=== PATIENT | male | born 1995 | race Caucasian/White ===

== ENCOUNTER 2021-05-02 11:10 | Emergency (ER) | payer OTHER, SELFPAY ==
[2021-05-02 16:44] VITALS: BP 135/76; PULSE 72; TEMP 36.9; O2SAT 100; BMI 25.8
[2021-05-02 18:16] LABS: Appearance Urine CLEAR; Color Urine YELLOW; Glucose Urine UA NEG (NEG); Leukocyte Esterase Urine NEG (NEG); Nitrite Urine NEG (NEG); Urine Blood NEG (NEG); Urine Ketones NEG (NEG); Urine Protein NEG (NEG-TRACE)
--- NOTE | 2021-05-02 23:03 | ED_ITS ---
HPI - Abdominal Pain General Chief Complaint: Abdominal Pain Stated Complaint: Abd pain Time Seen by Provider: 05/02/21 22:47 Related Data Allergies Allergy/AdvReac Type Severity Reaction Status Date / Time Penicillins Allergy Hives Verified 05/02/21 16:49 Physical Exam Vital Signs: Vital Signs: Last Vital Signs Temp 98.5 F 05/02/21 16:44 Pulse 72 05/02/21 16:44 BP 135/76 05/02/21 16:44 Pulse Ox 100 05/02/21 16:44 BMI result Body Mass Index 25.8 MDM - Abdominal Pain Lab Data Labs: Lab Results 05/02/21 Range/Units 18:09 Urine Color YELLOW Urine Appearance CLEAR Urine pH 6.0 (5.0-8.0) Ur Specific [place] 1.010 (1.005-1.025) Urine Protein NEG (NEG-TRACE) MG/DL Urine Glucose (UA) NEG (NEG) MG/DL Urine Ketones NEG (NEG) MG/DL Urine Blood NEG (NEG) Urine Nitrite NEG (NEG) Ur Leukocyte Esterase NEG (NEG) [facility] Social History Social History Advance Directives: No
--- NOTE | 2021-05-02 23:23 | ED.ABDPAIN ---
HPI - Abdominal Pain General Chief Complaint: Abdominal Pain Stated Complaint: Abd pain Time Seen by Provider: 05/02/21 22:47 Source: patient Mode of arrival: ambulatory Limitations: no limitations History of Present Illness HPI narrative: 25-year-old male who presents emergency department for evaluation of dysuria and pelvic pain. Patient states that yesterday had multiple episodes painful urination. He states that today these episodes resolved but he developed pain in his pelvic area. Describes the pelvic pain is a constant, pressure-like sensation. He has not noticed any hematuria. He denies any penile discharge. the patient states that he is sexually active with 1 female sexual partner. States he last had sex 2 days prior. He states that the symptoms are new and he has never had them in the past. Patient also states that he has been having hives. He states he has been having these for 1-2 weeks without any clear cause. He states that he does not have any hives at this time. Related Data Previous Rx's Medication Instructions Recorded doxycycline hyclate 100 mg tablet 100 mg PO Q12H 10 Days #20 tab 05/02/21 Allergies Allergy/AdvReac Type Severity Reaction Status Date / Time Penicillins Allergy Hives Verified 05/02/21 16:49 Review of Systems Review of Systems Yes all other systems are reviewed and are negative Physical Exam Vital Signs: Vital Signs: Last Vital Signs Temp 98.5 F 05/02/21 16:44 Pulse 72 05/02/21 16:44 BP 135/76 05/02/21 16:44 Pulse Ox 100 05/02/21 16:44 BMI result Body Mass Index 25.8 Const: General: cooperative and no acute distress Orientation/consciousness: oriented to person and oriented to place Limitations: no limitations HENMT: Head: Yes normal to inspection, Yes normocephalic and Yes atraumatic Ears: external ears normal General nose exam: Normal external nose present Face and sinus: Yes normal facial exam Mouth: Normal oral and palatal mucosa present Throat: Yes posterior oropharynx normal Eyes: General: appearance normal, both eyes and all related structures Pupils: Equal, round and reactive pupils present Neck: Neck: Yes normal visual inspection, Yes no lymphadenopathy, Yes trachea midline and Yes supple Chest: Chest palpation & inspection: normal inspection of the chest and normal palpation of entire chest wall Resp: Effort & Inspection: normal respiratory effort and able to speak in complete sentences Auscultation: clear to auscultation bilaterally Cardio: Rate: regular rate Rhythm: regular rhythm Heart sounds: S1 normal heart sound present, S2 normal heart sound present and no murmurs GI: Inspection: Yes normal to inspection Palpation (GI): Soft to palpation, nontender and no guarding Auscultation: normal bowel sounds : General: Yes no CVA tenderness Male General Exam: Yes normal external exam Penis: normal penis and circumcised Meatus: meatus normal and no meatla discharge Scrotum: scrotum normal and testes descended bilaterally Testes: Testes normal and no epidiymal tenderness Back/Spine/Pelvis: Back: no CVA tenderness Skin: General skin exam: no rashes or lesions noted Neuro: General: oriented to person and oriented to place Cranial nerves: Yes CN's II-XII intact bilaterally and Yes Equal, round and reactive pupils present Cognition (Neuro): normal cognition Extrem: General: Yes normal to inspection Psych: Appearance: grossly normal Speech and movement: Normal speech and movement present Affect: normal affect Attitude: cooperative Thought process: Normal thought process present Course Course Course Narrative: 25-year-old male who presents emergency department for evaluation of dysuria yesterday which resolved and pelvic pain which started today. The patient is sexually active and has 1 female sexual partner that he had sex with 2 days prior. Vital signs were normal. Physical examination was unremarkable. Urinalysis was negative. The patient's presentation is consistent with acute prostatitis. I did discuss the possibility of STI with the patient. A non clean catch urine was sent for GC and chlamydia PCR testing. Patient also had a COVID test as well. The patient will be treated with ceftriaxone 500 mg with lidocaine IM and doxycycline 100 mg twice a day for 10 days. The patient will be referred to our on-call urologist. He was also given the pamphlet for the patient portal. I told her that it is important that he check the gonorrhea and chlamydia results and if these results were positive then his sexual partner needs to be treated. He was advised to not have sex until he has completed his course of antibiotics and has followed up with his provider or the urologist. He is advised to take ibuprofen and Tylenol for pain as well. MDM - Abdominal Pain Lab Data Labs: Lab Results 05/02/21 Range/Units 18:09 Urine Color YELLOW Urine Appearance CLEAR Urine pH 6.0 (5.0-8.0) Ur Specific [place] 1.010 (1.005-1.025) Urine Protein NEG (NEG-TRACE) MG/DL Urine Glucose (UA) NEG (NEG) MG/DL Urine Ketones NEG (NEG) MG/DL Urine Blood NEG (NEG) Urine Nitrite NEG (NEG) Ur Leukocyte Esterase NEG (NEG) Discharge Plan Discharge Clinical Impression: Acute prostatitis Patient Disposition: Home, Self-Care Instructions: Prostatitis (ED) Additional Instructions: Your urinalysis was normal. Your exam was unremarkable. Your symptoms are consistent with an infection of your prostate (prostatitis) Your were tested for gonorrhea and chlamydia. These results will not come back today and it is important that you know whether these tests are positive her negative. If these tests are positive then your sexual partner will need to be treated. Do not have sex until you have completed your antibiotics and of followed up with your doctor or our urologist. You received ceftriaxone mixed with lidocaine 500 mg intramuscularly. I am giving you a prescription for an antibiotic called doxycycline 100 mg, take 1 pill every 12 hours for 10 days. Finish this entire prescription. Take ibuprofen 200 mg pills, 3 pills every 6 hours as needed for pain. Take Tylenol (acetaminophen) 500 mg pills, 2 pills every 4 to 6 hours as needed for pain. Follow-up with your doctor in for our on-call urologist in 7-10 days. Please return to the emergency department if your symptoms get worse or if you develop any symptoms that are concerning to you. Prescriptions: New doxycycline hyclate 100 mg tablet 100 mg PO Q12H 10 Days Qty: 20 RF: 0 Referrals: Ramon Randolph III, MD [Physician] - 10 days [facility] Past Medical History [facility] Narrative: Past medical history: Exercise-induced asthma. Past surgical history: None. Social history: He denies tobacco use. He states that he drinks 2-3 beers 4 times a week. He denies drug use. Social History Social History Advance Directives: No
[2021-05-02 23:30] LABS: COVID-19 Test Negative (Negative)
[2021-05-03] MEDS: cefTRIAXone sodium 500 MG, Lidocaine HCl 1 % MPF 1 ML IM (00:51)
[2021-05-03 02:34] LABS: CT PCR NOT DETECTED (Not Detect.); NG PCR NOT DETECTED (Not Detect.)
== END 2021-05-03 01:00 | disposition home or self-care (01) ==
PROVIDERS: Emergency Provider Emergency Medicine Emergency Medical Services
DX: N41.0 Acute prostatitis (principal); R30.0 Dysuria; L50.9 Urticaria, unspecified; Z20.822 Contact with and (suspected) exposure to COVID-19
CPT/HCPCS: 36415; 81003; 87491; 87591; 87635; 96372; 99283; 99284; J0696

== ENCOUNTER 2022-04-30 12:42 | Emergency (ER) | payer OTHER, SELFPAY ==
--- NOTE | 2022-04-30 12:43 | ECG_ITS ---
Test Reason : CHEST PAIN Blood Pressure : / mmHG Vent. Rate : 069 BPM Atrial Rate : 069 BPM P-R Int : 160 ms QRS Dur : 088 ms QT Int : 374 ms P-R-T Axes : 033 065 031 degrees QTc Int : 400 ms Normal sinus rhythm with sinus arrhythmia Normal ECG No previous ECGs available Referred By: Generic ED Physician Electronically Signed By:Quinton Elizabeth
[2022-04-30 12:44] VITALS: BP 144/90; PULSE 77; RESP 18; TEMP 36.6; O2SAT 97; BMI 25.9
[2022-04-30 13:02] LABS: MANUAL DIFF FLAG NO
[2022-04-30 13:10] LABS: Eosinophils Percent Auto 1.7 % (0-4); Hematocrit 43.5 % (42.0-52.0); Hemoglobin 15.1 g/dl (14.0-18.0); Imm Gran Pct Auto 0.2 % (0.0-0.4); Lymphocytes Percent Auto 22.1 % (20-40); Mean Corpuscular HGB Conc 34.7 g/dl (31.0-36.0); Mean Corpuscular Hemoglobin 30.4 pg (27.0-33.0); Mean Corpuscular Volume 87.7 fL (80.0-98.0); Mean Platelet Volume 10.3 fL (9.4-12.4); Monocytes Percent Auto 7.9 % (2-11); Neutrophils Percent Auto 67.6 % (45-73); Platelet Count 190 X10*3/uL (160-400); Red Blood Count 4.96 X10*6/uL (4.60-5.80); Red Cell Distribution Width 11.4 % (11.0-16.0); White Blood Count 6.4 X10*3/uL (4.8-10.8)
[2022-04-30 13:14] LABS: Basophils Percent Auto 0.5 % (0-2); Eosinophils Absolute Auto 0.1 X10*3/uL (0.0-0.4); Imm Gran Abs Auto 0.01 X10*3/uL (0.00-0.03); Lymphocytes Absolute Auto 1.4 X10*3/uL (1.2-4.9); Monocytes Absolute Auto 0.5 X10*3/uL (0.1-1.2); Neutrophils Absolute Auto 4.4 x10*3/uL (2.0-8.3)
[2022-04-30 13:21] LABS: Alanine Aminotransferase 23 U/L (0-40); Albumin Level 4.8 g/dL (3.5-5.0); Alkaline Phosphatase 64 U/L (39-117); Anion Gap 10 (12-20); Aspartate Amino Transferase 19 U/L (5-37); Bilirubin Direct 0.2 mg/dL (0.0-0.5); Bilirubin Total 0.5 mg/dL (0.0-1.0); Blood Urea Nitrogen 9 mg/dL (9-16); Calcium 9.4 mg/dL (8.4-10.2); Carbon Dioxide 31 mmol/L (22-29); Chloride 105 mmol/L (96-108); Creatinine Clr Calc Pharmacy 117.4; Estimated Glomerular Filt Rate > 60; Glucose Random 93 mg/dL (60-115); Potassium 4.2 mmol/L (3.3-5.1); Sodium 142 mmol/L (135-145); Total Protein 7.6 g/dL (6.5-8.0)
--- NOTE | 2022-04-30 13:35 | ED.CHESTPAIN ---
HPI - Chest Pain General Chief Complaint: Chest Pain Stated Complaint: palpations Time Seen by Provider: 04/30/22 13:09 Source: patient Mode of arrival: ambulatory History of Present Illness HPI narrative: 26-year-old male with presentation for heart palpitations that started today and last approximately 20 minutes and patient states at the time had been associated with dizziness, diaphoresis, shortness of breath. Patient states that they occurred with exertion as well as at rest. And of note he was COVID positive 1 week ago. Related Data Previous Rx's Medication Instructions Recorded doxycycline hyclate 100 mg tablet 100 mg PO Q12H 10 days #20 tabs 05/02/21 levofloxacin 500 mg tablet 500 mg PO DAILY prostatitis 14 05/18/21 days #14 tabs meloxicam 15 mg tablet (Mobic) 15 mg PO DAILY prostatitis 30 days 05/18/21 #30 tabs prednisone 20 mg tablet 20 mg PO DAILY 5 days #5 tabs 05/18/21 Allergies Allergy/AdvReac Type Severity Reaction Status Date / Time Penicillins Allergy Hives Verified 05/02/21 16:49 Review of Systems Review of Systems: Pertinent positives and negatives as stated in HPI 10 point review of systems is otherwise negative. PMFSH Past Medical History Source: nursing notes reviewed Social History Social History Advance Directives: No Advance Directives Information Provided: Yes Physical Exam Vital Signs: Vital Signs: Last Vital Signs Temp 97.8 F 04/30/22 12:44 Pulse 77 04/30/22 12:44 Resp 18 04/30/22 12:44 BP 144/90 H 04/30/22 12:44 Pulse Ox 97 04/30/22 12:44 O2 Del Method 04/30/22 12:44 BMI result Body Mass Index 25.9 VITAL SIGNS: Reviewed. GENERAL: Well developed, well nourished, in no acute distress, patient appears well. HEAD: Normocephalic/atraumatic EYES: PERRLA, EOMI EARS: Ext canals without abnormality, TMs non-bulging and non-erythematous NOSE: Nares patent bilateral OROPHARYNX: no oral lesions noted, posterior pharynx clear and non-erythematous without noted tonsillar enlargement/erythema/exudates NECK: Supple, no adenopathy LUNGS: Normal breath sounds, no tachypnea/wheeze/rhonchi/rales. SpO2<97> CARDIOVASCULAR: Regular rate and rhythm without noted murmurs ABDOMEN: Soft, non-tender, non-distended with bowel sounds. MUSCULOSKELETAL: No tenderness, deformities, or effusions noted on gross inspection. EXTREMITIES: No cyanosis, clubbing or edema. SKIN: Inspection of the skin reveals no rashes, no diaphoresis NEUROLOGIC: Alert and oriented x 4. Strength and sensation to light touch were grossly intact x 4. Course Course Course Narrative: I have reviewed all investigations for this patient, there is no evidence of infection/anemia/electrolyte imbalance to further explain patient's palpitations. I have reviewed the EKG which is negative for acute findings to better explain the palpitations. Viral testing is negative other than COVID-19 which in some cases can remain positive in patient's. He is otherwise not tachypneic, not tachycardic, and he is oxygenating well on room air. Medical Decision Making Medical Decision Making MDM Narrative: 26-year-old male who has recently had COVID and does not present with pericarditis type symptoms but states he has had some palpitations without fever or chills. Patient otherwise appears well and is hemodynamically stable, afebrile and oxygenating well on room air. Differential Diagnosis Differential Diagnoses: The differential diagnosis associated with the presentation includes Infection, anemia, electrolyte imbalance, viral Lab Data [facility] Lab Attestation statement: I reviewed the patient's lab results. Please see the course Section for discussion regarding lab results. Result Diagrams: 04/30/22 12:57 04/30/22 12:57 Labs: Lab Results 04/30/22 04/30/22 04/30/22 Range/Units 12:57 12:57 12:57 WBC 6.4 (4.8-10.8) X10*3/uL RBC 4.96 (4.60-5.80) X10*6/uL Hgb 15.1 (14.0-18.0) g/dl Hct 43.5 (42.0-52.0) % MCV 87.7 (80.0-98.0) fL MCH 30.4 (27.0-33.0) pg MCHC 34.7 (31.0-36.0) g/dl RDW 11.4 (11.0-16.0) % Plt Count 190 (160-400) X10*3/uL MPV 10.3 (9.4-12.4) fL Immature Gran % (Auto) 0.2 (0.0-0.4) % Neut % (Auto) 67.6 (45-73) % Lymph % (Auto) 22.1 (20-40) % [place] % (Auto) 7.9 (2-11) % Eos % (Auto) 1.7 (0-4) % Baso % (Auto) 0.5 (0-2) % Lymph # (Auto) 1.4 (1.2-4.9) X10*3/uL [place] # (Auto) 0.5 (0.1-1.2) X10*3/uL Eos # (Auto) 0.1 (0.0-0.4) X10*3/uL Baso # (Auto) 0.0 (0.0-0.2) X10*3/uL Abs Immat Gran (auto) 0.01 (0.00-0.03) X10*3/uL Absolute Neuts (auto) 4.4 (2.0-8.3) x10*3/uL Absolute Nucleated RBC 0.000 (0.0-0.012) X10*3/uL Nucleated RBC % (auto) 0.0 (0.0-0.2) /100WBC Sodium 142 (135-145) mmol/L Potassium 4.2 (3.3-5.1) mmol/L Chloride 105 (96-108) mmol/L Carbon Dioxide 31 H (22-29) mmol/L Anion Gap 10 L (12-20) BUN 9 (9-16) mg/dL Creatinine 0.86 (0.5-1.4) mg/dL Estim Creat Clear Calc 117.4 Estimated GFR > 60 Random Glucose 93 (60-115) mg/dL Calcium 9.4 (8.4-10.2) mg/dL Total Bilirubin 0.5 (0.0-1.0) mg/dL Direct Bilirubin 0.2 (0.0-0.5) mg/dL AST 19 (5-37) U/L ALT 23 (0-40) U/L Alkaline Phosphatase 64 (39-117) U/L Troponin I High Sens < 3.5 (<3.5-35.0) ng/L Total Protein 7.6 (6.5-8.0) g/dL Albumin 4.8 (3.5-5.0) g/dL Lipase 61 (8-78) U/L COVID-19 (MICHELINE) (Negative) COVID-19 Clin Com Influenza Type A (LEONILA) (Negative) Influenza Type B (LEONILA) (Negative) Influenza A & B Note 04/30/22 04/30/22 Range/Units 13:27 13:27 WBC (4.8-10.8) X10*3/uL RBC (4.60-5.80) X10*6/uL Hgb (14.0-18.0) g/dl Hct (42.0-52.0) % MCV (80.0-98.0) fL MCH (27.0-33.0) pg MCHC (31.0-36.0) g/dl RDW (11.0-16.0) % Plt Count (160-400) X10*3/uL MPV (9.4-12.4) fL Immature Gran % (Auto) (0.0-0.4) % Neut % (Auto) (45-73) % Lymph % (Auto) (20-40) % [place] % (Auto) (2-11) % Eos % (Auto) (0-4) % Baso % (Auto) (0-2) % Lymph # (Auto) (1.2-4.9) X10*3/uL [place] # (Auto) (0.1-1.2) X10*3/uL Eos # (Auto) (0.0-0.4) X10*3/uL Baso # (Auto) (0.0-0.2) X10*3/uL Abs Immat Gran (auto) (0.00-0.03) X10*3/uL Absolute Neuts (auto) (2.0-8.3) x10*3/uL Absolute Nucleated RBC (0.0-0.012) X10*3/uL Nucleated RBC % (auto) (0.0-0.2) /100WBC Sodium (135-145) mmol/L Potassium (3.3-5.1) mmol/L Chloride (96-108) mmol/L Carbon Dioxide (22-29) mmol/L Anion Gap (12-20) BUN (9-16) mg/dL Creatinine (0.5-1.4) mg/dL Estim Creat Clear Calc Estimated GFR Random Glucose (60-115) mg/dL Calcium (8.4-10.2) mg/dL Total Bilirubin (0.0-1.0) mg/dL Direct Bilirubin (0.0-0.5) mg/dL AST (5-37) U/L ALT (0-40) U/L Alkaline Phosphatase (39-117) U/L Troponin I High Sens (<3.5-35.0) ng/L Total Protein (6.5-8.0) g/dL Albumin (3.5-5.0) g/dL Lipase (8-78) U/L COVID-19 (MICHELINE) Positive A (Negative) COVID-19 Clin Com See Note Influenza Type A (LEONILA) Negative (Negative) Influenza Type B (LEONILA) Negative (Negative) Influenza A & B Note See Note Independent Interpretation I performed an independent interpretation of an: EKG Interpretation: Normal sinus rhythm, HR-69, no STEMI, FL/QRS/QTC are within normal limits Radiology Impression Radiologist Impression: My interpretation is in agreement with the radiologist impression of the chest x-ray. External Record Review External record reviewed: Outpatient record and Prior outpatient labs Discharge Plan Discharge Clinical Impression: Heart palpitations Patient Disposition: Home, Self-Care Instructions: Heart Palpitations (ED) Additional Instructions: 1. Avoid all caffeinated products such as tea, soda, some types of water, coffee, chocolate. 2. Follow-up with your primary care provider Monday morning to get further evaluated. Return to the ER for any worsening symptoms. Prescriptions: No Action levofloxacin 500 mg tablet 500 mg PO DAILY 14 Days Qty: 14 0RF prednisone 20 mg tablet 20 mg PO DAILY 5 Days Qty: 5 0RF meloxicam [Mobic] 15 mg tablet 15 mg PO DAILY 30 Days Qty: 30 0RF doxycycline hyclate 100 mg tablet 100 mg PO Q12H 10 Days Qty: 20 0RF
[2022-04-30 13:44] LABS: COVID-19 Test Positive (Negative)
[2022-04-30 13:47] LABS: IDNOW Serial# 16C4AD1C; Influenza A Negative (Negative); Influenza B2 Negative (Negative)
[2022-04-30 14:19] LABS: Troponin-I High Sensitivity < 3.5 ng/L (<3.5-35.0)
[2022-04-30 14:20] LABS: Lipase 61 U/L (8-78)
[2022-04-30 14:48] VITALS: BP 142/88; PULSE 78; RESP 18; TEMP 36.6; O2SAT 97
--- NOTE | 2022-04-30 14:49 | PC.NURSE ---
patient a/ox4 . VSS . went over discharge instructions as ordered by provider . patient to follow up with primary care . patient to return to Ed if symptoms worsen . no questions at this time .
== END 2022-04-30 14:51 | disposition home or self-care (01) ==
PROVIDERS: Emergency Provider Student in an Organized Health Care Education/Training Program
DX: U07.1 COVID-19 (principal); R00.2 Palpitations
CPT/HCPCS: 36415; 71045; 80053; 82248; 83690; 84484; 85025; 87502; 87635; 93005; 99283; 99284

== ENCOUNTER 2022-10-01 19:06 | Emergency (ER) | payer OTHER, SELFPAY ==
[2022-10-01 19:08] VITALS: BP 128/72; PULSE 74; RESP 16; TEMP 36.4; O2SAT 99; BMI 25.8
--- NOTE | 2022-10-01 19:09 | ED.GENADULT ---
HPI - General Adult General Chief complaint: General Medical Stated complaint: dizziness,bloody stools Time Seen by Provider: 10/01/22 19:45 Source: patient, RN notes reviewed and old records reviewed Mode of arrival: ambulatory Limitations: no limitations History of Present Illness HPI narrative: 27-year-old male presents for evaluation of 2 separate complaints. He reports occasional dizzy spells for the last 2 weeks. They occur almost daily He denies any headaches, head or neck trauma He states that this has not happened in the past He is not sure if his symptoms worsen with movement or are random He also endorses bright red blood with bowel movements for the last 3 days He denies any abdominal pain or rectal pain or diarrhea He is not on any blood thinners No other complaints or concerns at time Related Data Previous Rx's Medication Instructions Recorded doxycycline hyclate 100 mg tablet 100 mg PO Q12H 10 days #20 tabs 05/02/21 levofloxacin 500 mg tablet 500 mg PO DAILY prostatitis 14 05/18/21 days #14 tabs meloxicam 15 mg tablet (Mobic) 15 mg PO DAILY prostatitis 30 days 05/18/21 #30 tabs prednisone 20 mg tablet 20 mg PO DAILY 5 days #5 tabs 05/18/21 hydrocortisone acetate 25 mg 25 mg MD BID 5 days #12 ea 10/01/22 rectal suppository (Anusol-HC) meclizine 25 mg tablet 25 mg PO TID PRN dizziness #20 tabs 10/01/22 Allergies Allergy/AdvReac Type Severity Reaction Status Date / Time Penicillins Allergy Hives Verified 05/02/21 16:49 Review of Systems Constitutional: Constitutional: Reports as per HPI, Denies chills, Denies fatigue, Denies fever(s) and Denies headache(s) ENT: Reports dizziness and Denies headache(s) Cardiovascular: Cardiovascular: Denies chest pain and Denies dyspnea Respiratory: Respiratory: Denies cough and Denies dyspnea Gastrointestinal: Gastrointestinal: Denies abdominal pain, Reports hematochezia, Denies constipation and Denies vomiting Genitourinary: Genitourinary: Denies difficulty urinating and Denies dysuria Neurologic: Reports dizziness, Denies headache(s) and Denies focal weakness Comments: Reports dizzy spells Endocrine: Endocrine: Denies fatigue [facility] Social History Social History Advance Directives: No Advance Directives Information Provided: No Physical Exam ED Vital Signs: Vital Signs - 24 hr 10/01/22 19:08 Temperature 97.6 F Pulse Rate 74 Respiratory Rate 16 Blood Pressure 128/72 Pulse Oximetry 99 Oxygen Delivery Method Room Air BMI result Body Mass Index 25.8 Const General: healthy appearing, comfortable, no acute distress, alert and awake Nutritional Appearance: well nourished Orientation/consciousness: patient oriented x3 HENMT Head: Yes normocephalic and Yes atraumatic Ears: Abnormal EAC present excessive cerumen bilateral Throat: Yes posterior oropharynx normal Eyes Eyelids: Yes eyelids normal Conjunctivae: conjunctivae normal Sclerae: sclerae normal Corneas: corneas normal Pupils: Equal, round and reactive pupils present EOM: EOMs intact bilaterally Neck Neck: Yes full ROM Resp Effort & Inspection: normal respiratory effort, able to speak in complete sentences, no audible wheezes and not labored Cardio Rate: regular rate Rhythm: regular rhythm GI Inspection: No distended Palpation (GI): Soft to palpation, not firm, nontender, no guarding and not rigid Auscultation: normoactive bowel sounds Rectal Exam - Male: Yes visual inspection normal, Yes normal sphincter tone, Yes heme negative stool and No External hemorrhoid(s) present Skin General skin exam: no rashes or lesions noted and elasticity normal Neuro General: patient oriented x3 and Pratts Hallpike (Positive test) Cranial nerves: Yes CN's II-XII intact bilaterally, Yes Equal, round and reactive pupils present and Yes Bilaterally intact EOM present Cognition (Neuro): normal cognition Extrem Other: Moving all extremities well without any obvious deformities Course Course Course Narrative: RME performed by Alvina Morton PA-C. Patient is a 27 year old assigned male at presenting to the emergency department with intermittent dizziness and bloody stools. Labs ordered. Patient placed back in the waiting room pending room availability and results. Medications Administered Discontinued Medications Generic Name Dose Route Start Last Admin Trade Name Freq PRN Reason Stop Dose Admin Meclizine HCl 25 mg 10/01/22 20:11 10/01/22 20:23 Meclizine Hcl 25 Mg Tablet PO 10/01/22 20:12 25 mg ONCE ONE Administration Medical Decision Making Medical Decision Making MDM Narrative: Patient presents for bright red blood per rectum but denies any rectal abdominal pain. No diarrhea. Abdominal exam is benign. Less likely to be infectious process. He is heme negative on exam. However I still feel that he most likely has internal hemorrhoids. Will also refer the patient to GI for routine colonoscopy his symptoms do not improve. Patient's dizziness is reproducible with Pratts-Hallpike reviewed, consistent with vertigo, he was treated with meclizine. Differential Diagnosis Internal hemorrhoids Lower GI bleed Colitis Portable Colon mass Orthostasis Dizziness Vertigo Lab Data 10/01/22 19:32 10/01/22 19:32 Labs: Lab Results 10/01/22 10/01/22 10/01/22 Range/Units 19:32 19:32 19:32 WBC 8.7 (4.8-10.8) X10*3/uL RBC 4.61 (4.60-5.80) X10*6/uL Hgb 13.9 L (14.0-18.0) g/dl Hct 40.3 L (42.0-52.0) % MCV 87.4 (80.0-98.0) fL MCH 30.2 (27.0-33.0) pg MCHC 34.5 (31.0-36.0) g/dl RDW 11.7 (11.0-16.0) % Plt Count 189 (160-400) X10*3/uL MPV 10.8 (9.4-12.4) fL Immature Gran % (Auto) 0.2 (0.0-0.4) % Neut % (Auto) 64.0 (45-73) % Lymph % (Auto) 26.6 (20-40) % [place] % (Auto) 6.3 (2-11) % Eos % (Auto) 2.4 (0-4) % Baso % (Auto) 0.5 (0-2) % Lymph # (Auto) 2.3 (1.2-4.9) X10*3/uL [place] # (Auto) 0.6 (0.1-1.2) X10*3/uL Eos # (Auto) 0.2 (0.0-0.4) X10*3/uL Baso # (Auto) 0.0 (0.0-0.2) X10*3/uL Abs Immat Gran (auto) 0.02 (0.00-0.03) X10*3/uL Absolute Neuts (auto) 5.6 (2.0-8.3) x10*3/uL Absolute Nucleated RBC 0.000 (0.0-0.012) X10*3/uL Nucleated RBC % (auto) 0.0 (0.0-0.2) /100WBC PT 11.3 (10.0-13.1) SEC INR 1.0 (0.9-1.1) APTT 34.6 (26.0-36.4) SEC Sodium 142 (135-145) mmol/L Potassium 3.6 (3.3-5.1) mmol/L Chloride 106 (96-108) mmol/L Carbon Dioxide 26 (22-29) mmol/L Anion Gap 14 (12-20) BUN 16 (9-16) mg/dL Creatinine 0.86 (0.5-1.4) mg/dL Estim Creat Clear Calc 116.4 Estimated GFR > 60 Random Glucose 105 (60-115) mg/dL Calcium 9.6 (8.4-10.2) mg/dL Magnesium 2.3 (1.6-2.6) mg/dL Total Bilirubin 0.4 (0.0-1.0) mg/dL AST 18 (5-37) U/L ALT 23 (0-40) U/L Alkaline Phosphatase 61 (39-117) U/L Total Protein 7.4 (6.5-8.0) g/dL Albumin 4.5 (3.5-5.0) g/dL Stool Occult Blood (NEGATIVE) 10/01/22 Range/Units 20:16 WBC (4.8-10.8) X10*3/uL RBC (4.60-5.80) X10*6/uL Hgb (14.0-18.0) g/dl Hct (42.0-52.0) % MCV (80.0-98.0) fL MCH (27.0-33.0) pg MCHC (31.0-36.0) g/dl RDW (11.0-16.0) % Plt Count (160-400) X10*3/uL MPV (9.4-12.4) fL Immature Gran % (Auto) (0.0-0.4) % Neut % (Auto) (45-73) % Lymph % (Auto) (20-40) % [place] % (Auto) (2-11) % Eos % (Auto) (0-4) % Baso % (Auto) (0-2) % Lymph # (Auto) (1.2-4.9) X10*3/uL [place] # (Auto) (0.1-1.2) X10*3/uL Eos # (Auto) (0.0-0.4) X10*3/uL Baso # (Auto) (0.0-0.2) X10*3/uL Abs Immat Gran (auto) (0.00-0.03) X10*3/uL Absolute Neuts (auto) (2.0-8.3) x10*3/uL Absolute Nucleated RBC (0.0-0.012) X10*3/uL Nucleated RBC % (auto) (0.0-0.2) /100WBC PT (10.0-13.1) SEC INR (0.9-1.1) APTT (26.0-36.4) SEC Sodium (135-145) mmol/L Potassium (3.3-5.1) mmol/L Chloride (96-108) mmol/L Carbon Dioxide (22-29) mmol/L Anion Gap (12-20) BUN (9-16) mg/dL Creatinine (0.5-1.4) mg/dL Estim Creat Clear Calc Estimated GFR Random Glucose (60-115) mg/dL Calcium (8.4-10.2) mg/dL Magnesium (1.6-2.6) mg/dL Total Bilirubin (0.0-1.0) mg/dL AST (5-37) U/L ALT (0-40) U/L Alkaline Phosphatase (39-117) U/L Total Protein (6.5-8.0) g/dL Albumin (3.5-5.0) g/dL Stool Occult Blood NEGATIVE (NEGATIVE) Discharge Plan Discharge Clinical Impression: Bright red rectal bleeding, Dizziness Patient Disposition: Home, Self-Care Instructions: Rectal Bleeding (ED), Vertigo (ED) Additional Instructions: Your blood work was without any significant abnormalities. Your rectal bleeding is likely related to internal hemorrhoids. Use Anusol suppositories twice daily for 5 days I have referred you to GI, Dr. Willis. If your symptoms persist you may require a colonoscopy to rule out more concerning pathology Your dizziness is most likely related to vertigo. Take meclizine up to 3 times daily as needed for dizzy spells Follow-up with your doctor regarding this you may need referral for a ?tilt-table test. ? Prescriptions: New meclizine 25 mg tablet 25 mg PO TID PRN (Reason: dizziness) Qty: 20 0RF hydrocortisone acetate [Anusol-HC] 25 mg suppository 25 mg MD BID 5 Days Qty: 12 0RF No Action levofloxacin 500 mg tablet 500 mg PO DAILY 14 Days Qty: 14 0RF prednisone 20 mg tablet 20 mg PO DAILY 5 Days Qty: 5 0RF meloxicam [Mobic] 15 mg tablet 15 mg PO DAILY 30 Days Qty: 30 0RF doxycycline hyclate 100 mg tablet 100 mg PO Q12H 10 Days Qty: 20 0RF Referrals: Sushant Willis [Physician] - (bright red rectal bleeding )
--- OUTSIDE RECORDS SUMMARY | 2022-10-01 19:31 | XMS_ITS | Continuity of Care Document ---
Author Name Unknown Organization [facility] Address [address] [place] [id number]- Care Team Providers Care Photographer Still Name Role Phone Radha Rowe Primary Care Physician Encounter [facility] Date(s): 04/21/22 - 05/21/[address] [id number] Allergies, Adverse Reactions, Alerts Substance Reaction Severity Status penicillins Active Immunizations Given and Recorded Vaccine Date Status Refusal Reason tetanus/diphtheria/pertussis, acel(Tdap) 04/20/22 Given influenza virus vaccine, inactivated 02/09/22 [place] rded Problem List Condition Confirmation Course Effective Dates Status Health St atus Informant Pain of left thumb Confirmed Active Knee pain, right Confirmed Active Social History Social History Type Response Smoking Status Former smoker, quit more than 30 days ago; Tobacco use times per day: 1/2 ppd for 3 years quit 2014; entered on: 04/20/22 Sex Patient Care team information Care Team Personnel Name: Radha Rowe Position: S PCO Associate Professional Member Role: PCP Address: Address: [address] [place] [address]. [address] [place] [address]- Care Team Related Persons Name: ANDRIA SOTOMAYOR Address: home [id number] [place] [address] [place] [id number]
--- OUTSIDE RECORDS SUMMARY | 2022-10-01 19:31 | XMS_ITS | Continuity of Care Document ---
Author Name Unknown Organization [facility] Address [address] [place] [address]- Care Team Providers Care High School Band Teacher Name Role Phone Radha Rowe Primary Care Physician Encounter [facility] Date(s): 08/17/22 - 09/16/[address] [id number] Allergies, Adverse Reactions, Alerts Substance Reaction Severity [...] team information Care Team Personnel Name: Radha Roew Position: S PCO Associate Professional Member Role: PCP Address: Address: [address] [place] [address]. [address] [place] [address]- Care Team Related Persons Name: ANDRIA SOTOMAYOR Address: home [id number] [place] [address] [place] [id number]
--- OUTSIDE RECORDS SUMMARY | 2022-10-01 19:31 | XMS_ITS | Continuity of Care Document ---
Author Name Unknown Organization [facility] Address [address] [place] [id number]- Care Team Providers Care Outside Sales Executive Name Role Phone Radha Rowe Primary Care Physician Encounter [facility] Date(s): 04/20/22 - 05/20/[address] [id number] Attending Physician: Viktor Post Admitting Physician: Viktor Post Referring Physician: AdmtrViktor Allergies, Adverse Reactions, Alerts Substance Reaction Severity [...] Care Team Personnel Name: Radha Rowe Position: [facility] PCO Associate Professional Member Role: PCP Address: Address: [address] [place] [address]. [address] [place] [address]- Care Team Related Persons Name: ANDRIA SOTOMAYOR Address: home [id number] [place] [address] [place] [address]
[2022-10-01 19:43] LABS: MANUAL DIFF FLAG NO
[2022-10-01 19:51] LABS: Prothrombin Time 11.3 SEC (10.0-13.1)
[2022-10-01 19:54] LABS: Partial Thromboplastin Time 34.6 SEC (26.0-36.4)
[2022-10-01 19:57] LABS: Basophils Percent Auto 0.5 % (0-2); Eosinophils Absolute Auto 0.2 X10*3/uL (0.0-0.4); Eosinophils Percent Auto 2.4 % (0-4); Hematocrit 40.3 % (42.0-52.0); Hemoglobin 13.9 g/dl (14.0-18.0); Imm Gran Abs Auto 0.02 X10*3/uL (0.00-0.03); Imm Gran Pct Auto 0.2 % (0.0-0.4); Lymphocytes Absolute Auto 2.3 X10*3/uL (1.2-4.9); Lymphocytes Percent Auto 26.6 % (20-40); Mean Corpuscular HGB Conc 34.5 g/dl (31.0-36.0); Mean Corpuscular Hemoglobin 30.2 pg (27.0-33.0); Mean Corpuscular Volume 87.4 fL (80.0-98.0); Mean Platelet Volume 10.8 fL (9.4-12.4); Monocytes Absolute Auto 0.6 X10*3/uL (0.1-1.2); Monocytes Percent Auto 6.3 % (2-11); Neutrophils Absolute Auto 5.6 x10*3/uL (2.0-8.3); Platelet Count 189 X10*3/uL (160-400); Red Blood Count 4.61 X10*6/uL (4.60-5.80); Red Cell Distribution Width 11.7 % (11.0-16.0); White Blood Count 8.7 X10*3/uL (4.8-10.8)
[2022-10-01 20:03] LABS: Alanine Aminotransferase 23 U/L (0-40); Albumin Level 4.5 g/dL (3.5-5.0); Alkaline Phosphatase 61 U/L (39-117); Anion Gap 14 (12-20); Aspartate Amino Transferase 18 U/L (5-37); Bilirubin Total 0.4 mg/dL (0.0-1.0); Blood Urea Nitrogen 16 mg/dL (9-16); Calcium 9.6 mg/dL (8.4-10.2); Carbon Dioxide 26 mmol/L (22-29); Chloride 106 mmol/L (96-108); Creatinine Clr Calc Pharmacy 116.4; Estimated Glomerular Filt Rate > 60; Glucose Random 105 mg/dL (60-115); Magnesium 2.3 mg/dL (1.6-2.6); Potassium 3.6 mmol/L (3.3-5.1); Sodium 142 mmol/L (135-145); Total Protein 7.4 g/dL (6.5-8.0)
[2022-10-01] MEDS: Meclizine HCl 25 MG TABLET PO (20:23)
[2022-10-01 20:27] LABS: OBS Int Ctl Valid YES; OBS1 NEGATIVE (NEGATIVE)
== END 2022-10-01 20:57 | disposition home or self-care (01) ==
PROVIDERS: Physician Assistant; Physician Assistant Medical; Emergency Provider Emergency Medicine
DX: K62.5 Hemorrhage of anus and rectum (principal); R42 Dizziness and giddiness
CPT/HCPCS: 36415; 80053; 82272; 83735; 85025; 85610; 85730; 99282; 99283